=== PATIENT | male | born 1940 | race Caucasian/White ===

== ENCOUNTER → 2017-12-07 | Day surgery (SDC) | payer MEDICARE, BC ==
[2017-12-04 15:58] VITALS: BMI 28.7
[~2017-12-07] MED LIST: BUPIVACAINE (PF) 0.5% 30 ML VIAL SQ ONE; GLYCOPYRROLATE 0.2 MG/ML 2 ML VIAL ONE; HEPARIN SODIUM,PORCINE 5,000 UNIT/ML 1 ML VIAL SQ ONE; HYDROcodone/APAP 5-325MG 1 EACH TAB PO ONE; HYDROcodone/APAP 5-325MG 1 EACH TAB PO PRN; IV FLUID CONTINUATION 1,000 ML IV ONE; LACTATED RINGERS 1,000 ML IV ONE; LIDOCAINE 1% INJ 10MG/ML (20 ML MDV) ONE; MIDAZOLAM 2 MG/2 ML VIAL IV PRN; MIDAZOLAM 2 MG/2 ML VIAL ONE; MORPHINE SULFATE 4 MG/ML SYRINGE IV PRN; NALOXONE 0.4 MG/ML 1 ML VIAL IV PRN; NEOSTIGMINE 1 MG/ML 10 ML VIAL ONE; ONDANSETRON 4 MG/2 ML VIAL IVP ONE; PROPOFOL 10 MG/ML 20 ML VIAL IV ONE; ROCURONIUM BROMIDE 10 MG/ML 10 ML VIAL IV ONE; SCOPOLAMINE 1.5MG/72HR PATCH TRANSDERM ONE; SUCCINYLCHOLINE CHLORIDE 100 MG/5 ML SYR IV ONE; ceFAZolin IN SWFI 2 GM/20 ML SYRINGE IVP ONE; ePHEDrine SULFATE/0.9% NACL/PF 50 MG/5 ML SYRINGE IV ONE; fentaNYL (PF) 50 MCG/ML 2 ML AMP ONE
[2017-12-07] MEDS: LACTATED RINGERS 1,000 ML IV SCH ×2 (07:19→07:46)
[2017-12-07] MEDS: DEXAMETHASONE SOD PHOSPHATE 10 MG/ML 1 ML VIAL IV ONE ×2 (07:24→07:26)
[2017-12-07 09:06] VITALS: TEMP 97.8
--- NOTE | 2017-12-07 09:11 | P.OP ---
Date of Procedure: 12/07/17 Procedure(s) Performed: PREOPERATIVE DIAGNOSIS: Incarcerated umbilical hernia POSTOPERATIVE DIAGNOSIS: Same PROCEDURE: Umbilical herniorrhaphy with mesh SURGEON: Shelli EBL: Minimal ANESTHESIA: General COMPLICATIONS: None OPERATIVE PROCEDURE: The patient was placed in the operating table in the supine position. A left periumbilical incision was made using the scalpel. The subcutaneous tissues were dissected bluntly. The hernia sac was identified. The umbilical attachments to the fascia were divided using electrocautery. The hernia sac was excised. The hernia sac was sent to pathology. The omentum was able to be reduced back into the peritoneal cavity at that time. The preperitoneal space was carefully dissected circumferentially using both electrocautery and blunt dissection. No bleeding was encountered. A 6.4 cm ventral ex mesh was placed beneath the fascia and circumferentially sutured to the fascia using 0 Ethibond transfer fashion sutures. The defect was then closed using 0 Ethibond sutures in a vest over pants fashion. The folding edge was also sutured down using 0 Ethibond sutures. The subcutaneous tissues were reapproximated using inverted 3-0 Vicryl sutures. The umbilicus was tacked back down to the fascia using a 3-0 Vicryl suture. The skin was closed using 4-0 Monocryl sutures. Steri-Strips and sterile dressings were then applied. DISPOSITION: Stable to recovery room
[2017-12-07 09:54] VITALS: RESP 18
[2017-12-07 11:09] VITALS: BP 147/71; PULSE 55
== END | disposition home or self-care (01) ==
LOC: OR 06:40
PROVIDERS: ATTEND Surgery
DX: K42.0 Umbilical hernia with obstruction, without gangrene (principal); I10 Essential (primary) hypertension; E78.5 Hyperlipidemia, unspecified; Z79.82 Long term (current) use of aspirin; Z79.1 Long term (current) use of non-steroidal anti-inflammatories (NSAID); Z79.899 Other long term (current) drug therapy
CPT/HCPCS: 88302; 49587; C1781; J2250; J1644; J1100; J2710; J2405; J2001; J3010; J0330; J2704; J0690

== ENCOUNTER → 2018-09-14 | Outpatient (CLI) | payer BC, MEDICARE, OTHER ==
--- NOTE | 2018-09-19 19:17 | MR ---
MR abdomen with and without contrast HISTORY: Abnormal bone scan, SPECT-CT Multiplanar multisequence and postcontrast images obtained through the abdomen following [address] IV. Correlation to outside exam dated 08/12/2018 In the mid body of the pancreas there is a multilocular cystic focus, T2 hyperintense, T1 hypointense which shows multiple internal septations and measures overall approximately 2.8 x 3.1 x 2.1 cm. Sugg estion of communication with the pancreatic duct. Associated calcification noted on CT. The pancreati c duct is somewhat ectatic and tortuous distal to this focus, additional cystic focus at the tail fletcher sures approximately 8 mm. Dependent gallstones are present, luminal filling defects with signal withi n the gallbladder. The mass in the right adrenal gland shows signal drop on out of phase imaging compatible with adenoma measuring approximately 3.7 cm in greatest dimension. There is no hydronephrosis within the kidneys, small T2 hyperintense focus at the upper pole the left kidney measures only approximately 1 cm. Left adrenal gland is normal. Small hiatal hernia is present. Spleen is normal. No retroperitoneal adenop athy or ascites. No evident pleural effusions. The heart is enlarged. No evident aortic aneurysm. There is some enhancement of the septa following contrast administration. 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 Cholelithiasis. Adrenal adenoma on the right. Cardiomegaly.
== END | disposition home or self-care (01) ==
LOC: RADMRIMAIN 10:29
PROVIDERS: ATTEND Physician Assistant
DX: D49.0 Neoplasm of unspecified behavior of digestive system (principal); K80.20 Calculus of gallbladder without cholecystitis without obstruction; D35.00 Benign neoplasm of unspecified adrenal gland; Z01.812 Encounter for preprocedural laboratory examination
CPT/HCPCS: 82565; 74183; 36415; A9585

== ENCOUNTER → 2019-04-14 | Outpatient (CLI) | payer OTHER ==
--- NOTE | 2019-04-14 14:16 | MR ---
MR abdomen with and without contrast HISTORY: Prior abnormal MR abdomen, pancreatic cyst Multiplanar multisequence and postcontrast images obtained through the abdomen following [address] IV Correlation to prior MR abdomen 09/14/2018 There is motion on the exam. The multilocular cystic focus involving the pancreatic body is again noted and shows similar signal c haracteristics. There are multiple internal septations. Questionable communication with the pancreati c duct. Largest cystic focus measures approximately 2.8 cm in greatest AP dimension which has increas ed in size. Next largest cystic focus measures 15 mm, these lesions are low T1 signal, high T2 signal as on prior. Septations are seen to enhance following contrast administration. Overall lesion measur es approximately 4 cm in AP dimension by 2.3 cm in transverse dimension by 2.5 cm in cephalad to caud al dimension. Liver shows signal drop on out of phase imaging as does the right adrenal mass which measures approxi mately 3.8 cm. There is no retroperitoneal adenopathy. Aorta shows normal caliber. There is a small h iatal hernia. Gallstones are noted. Lung bases are clear. Possible small cystic focus upper pole left kidney, low signal on T1-weighted images measures 12 mm, not seen for certain on T2-weighted images. Possible hemangioma is noted within the visualized spine. IMPRESSION: The cystic neoplasm involving the pancreatic body has grown in the interval, consider ser ous cystadenoma of the pancreas, mucinous cystic neoplasm of the pancreas. Probable hepatic steatosis and right adrenal adenoma. Hiatal hernia. Cholelithiasis.
== END | disposition home or self-care (01) ==
LOC: RADMRIMAIN 08:12
DX: K44.9 Diaphragmatic hernia without obstruction or gangrene (principal); K80.20 Calculus of gallbladder without cholecystitis without obstruction; D49.0 Neoplasm of unspecified behavior of digestive system
CPT/HCPCS: 74183

== ENCOUNTER → 2020-03-24 | Outpatient (CLI) | payer OTHER ==
[2020-03-24 16:26] LABS: African American GFR (CKD) 104.8 (60.0-200.0); Albumin 4.4 g/dL (3.80-4.90); Albumin/Globulin Ratio 2.1 (1.60-3.17); Anion Gap 8.5 mmol/L (4.00-12.00); BUN/Creat Ratio 22.86 Ratio (12.00-20.00); Calcium 9.4 mg/dL (8.7-10.3); Carbon Dioxide 25.5 mmol/L (21.6-31.8); Chol/HDL Ratio 3.29; Globulin 2.1 g/dL (1.6-3.3); Non-African American GFR(CKD) 90.4 (60.0-200.0); Potassium 4.2 mmol/L (3.5-5.5); Total Bilirubin 0.7 mg/dL (0.2-1.2); Total Protein 6.5 g/dL (6.2-8.2)
[2020-03-24 17:21] LABS: Hemoglobin A1C 10.5 % (4.0-6.0)
[2020-03-24 18:12] LABS: Urine Creatinine 105.4 mg/dL
== END | disposition home or self-care (01) ==
LOC: LABWHC1 07:36
PROVIDERS: ATTEND Internal Medicine Endocrinology, Diabetes & Metabolism
DX: E11.65 Type 2 diabetes mellitus with hyperglycemia (principal)
CPT/HCPCS: 36415; 80053; 80061; 82043; 82570; 83036; 84443

== ENCOUNTER → 2020-11-03 | Outpatient (CLI) | payer OTHER ==
--- NOTE | 2020-11-03 11:52 | MR ---
EXAMINATION TYPE: MR MRCP DATE OF EXAM: 11/03/2020 COMPARISON: 04/14/2019 and 09/14/2018 HISTORY: 80-year-old male K86.2, Cyst of pancreas, F/u TECHNIQUE: Multiplanar, multisequence images of the abdomen are obtained. Highly T2 weighted sequence s of the hepatobiliary system for MRCP. Rotational 3-D reconstructions generated on a dedicated [employer] workstation. FINDINGS: The heart is mildly enlarged without pericardial effusion. Liver borderline in size at 17.5 cm. No T2-weighted liver lesion is identified. No biliary ductal dilatation. Small dependently layering gallstones are demonstrated. No gallbladder wall thickening or hydropic ch shmuel. Incidental fatty lesion within the right paraspinal musculature of the upper abdomen measuring 6.5 cm long by 3.4 cm wide by 1.9 cm thick. No internal complexity is identified. Adrenal glands and left kidney appear within normal limits. Spleen is absent. Tiny 6 mm T2 hyperintensity within the mid right kidney likely a tiny cyst. There is interval partial pancreatic resection at the level of the pancreatic neck. Tiny 6 mm and 3 mm cystic structures within the remnant pancreatic head, refer to axial T2 series 401 image 19 and 23 . The larger of these appears to have been very small 4 mm, previously in retrospect. The smaller one is not clearly seen previously. No other focal lesion is identified. No evident communication with t he main pancreatic duct. There seems to be some mid upper abdominal olinda mesentery particularly on the T2 fat-saturated seque nce. This could reflect some chronic inflammation or postsurgical change. No upper abdominal lymphadenopathy, ascites fluid, or gross bowel abnormality seen. Moderate stool bu rden. IMPRESSION: 1. Interval partial pancreatectomy with resection of the previous multilocular cystic mass of the alcaraz creatic body. A couple tiny cysts are present in the pancreatic head measuring 6 mm and 3 mm. The 6 m m cyst was very small at 4 mm in retrospect on 04/14/2019. The 3 mm cyst is not clearly seen previously . No other lesion is identified. Consider annual surveillance. 2. There seems to be some olinda mesentery in the mid upper abdomen. This could reflect postsurgical c hange or mesenteric panniculitis. Clinically correlate. 3. Incidental fatty lesion within the right paraspinal musculature measuring 6.5 x 3.4 x 1.9 cm, unch anged from 04/14/2019. No internal complexity seen. 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 This can be fo llowed clinically and if any growth or pain develops here, dedicated imaging would be recommended. 4. Mild cardiomegaly. Cholelithiasis. Moderate stool burden.
== END | disposition home or self-care (01) ==
LOC: RADMRIMAIN 08:03
PROVIDERS: ATTEND Physician Assistant
DX: K86.2 Cyst of pancreas (principal); K80.20 Calculus of gallbladder without cholecystitis without obstruction; Z90.411 Acquired partial absence of pancreas
CPT/HCPCS: 74181

== ENCOUNTER → 2020-12-27 | Outpatient (CLI) | payer OTHER ==
[2020-12-27 16:10] LABS: African American GFR (CKD) 111.6 (60.0-200.0); Albumin 4.7 g/dL (3.80-4.90); Albumin/Globulin Ratio 2.04 (1.60-3.17); Anion Gap 6.8 mmol/L (4.00-12.00); Calcium 9.8 mg/dL (8.7-10.3); Carbon Dioxide 29.2 mmol/L (21.6-31.8); Chol/HDL Ratio 3.05; Globulin 2.3 g/dL (1.6-3.3); LDL Cholesterol,Calculated 57.2 mg/dL (0.0-131.0); Non-African American GFR(CKD) 96.3 (60.0-200.0); Potassium 4.7 mmol/L (3.5-5.5); Total Bilirubin 0.7 mg/dL (0.3-1.2); VLDL Calculation 30.8 mg/dL (5.00-40.00)
[2020-12-27 17:30] LABS: Urine Creatinine 71.9 mg/dL
== END | disposition home or self-care (01) ==
LOC: LABWHC1 10:16
PROVIDERS: ATTEND Internal Medicine Endocrinology, Diabetes & Metabolism
DX: E11.65 Type 2 diabetes mellitus with hyperglycemia (principal)
CPT/HCPCS: 36415; 80053; 80061; 82043; 82570; 83036; 84443

== ENCOUNTER → 2022-10-02 | Outpatient (CLI) | payer OTHER ==
--- NOTE | 2022-10-03 07:18 | MR ---
EXAMINATION TYPE: MR pancreas wo/w con DATE OF EXAM: 10/02/2022 COMPARISON: Prior MRCP November 03, 2020. Prior MRI abdomen April 14, 2019 and older study 2017. HISTORY: Cyst of pancreas CONTRAST: Standard multiplanar, multisequence MRI departmental protocol images were obtained without contrast a nd with 9 mL intravenous Gadavist gadolinium contrast. Imaging performed of the abdomen focusing on the pancreas. FINDINGS: Exam suboptimal as there is motion artifact aggravation particularly on the T2 coronal weig hted images. Pancreas: Resection of the body and tail of pancreas redemonstrated with some remnant tissue in the p ancreatic head again seen. There is slightly larger 8 mm thin-walled cyst or cystic lesion in the alcaraz creatic head axial image 27 increased in size from 6 mm on prior study. Prior visualized 3 mm thin-wa lled cyst anteriorly along the right aspect not clearly seen on current study. No new solid or cystic masses are evident. No abnormal enhancement. Visualized portion of pancreatic duct is not dilated. Other: Lung bases remain clear. Mild Cardiomegaly redemonstrated. There are numerous dependent gallst ones within the gallbladder redemonstrated. No surrounding fluid or fat stranding noted. Liver is nor mal in size without concerning solid or cystic mass. Left adrenal gland unremarkable. Persistent oval circumscribed 4.0 x 3.0 cm right adrenal mass with diffuse signal dropout consistent with benign lip id rich adenoma. No hydronephrosis or concerning solid or cystic renal masses are identified. No susp icious bowel dilatation. No intra-abdominal ascites. Horizontal scar overlies the anterior abdominal wall coronal image 2 for reference. Spleen redemonstrated surgically absent. Stable fat density 3.2 x 1.0 cm lesion in the right posterior paraspinal muscles on axial image 49 felt to reflect intramuscu lar lipoma. IMPRESSION: Slight enlargement of the 8 mm thin-walled cyst or cystic lesion in the head of the pancr eas from 6 mm on prior study. No enhancing solid component. No new solid or cystic masses clearly see n. Advise continued annual surveillance.
== END | disposition home or self-care (01) ==
LOC: RADMRIMAIN 08:36
PROVIDERS: ATTEND Internal Medicine Gastroenterology
DX: K86.2 Cyst of pancreas (principal); K86.89 Other specified diseases of pancreas
CPT/HCPCS: 74183; A9585

== ENCOUNTER → 2023-06-06 | Outpatient (CLI) | payer OTHER ==
--- NOTE | 2023-06-09 10:22 | MR ---
EXAMINATION TYPE: MR abdomen wo/w con with MRCP DATE OF EXAM: 06/06/2023 5:53 PM INDICATION: Patient age:Male; 83 years old; Reason for study: K86.2; PHH. Cyst of pancreas, Hx pancreatitis, removed half of his pancreas, remove d spleen, Sharp pains various spots throughout abdomen COMPARISON: CT scan abdomen from 04/14/2019, 11/03/2020, 10/02/2022. 09/14/2018. TECHNIQUE: Multiplanar multi-sequence imaging was performed without contrast. Post contrast imaging was performed. Post IV contrast subtraction images were also submitted for review. MRCP sequences we re also performed with IV Contrast: 8ml cc Gadavist FINDINGS: LOWER CHEST: No gross irregularity. ABDOMEN MRCP: * The intrahepatic ducts are mildly prominent centrally. * The common bile duct at the level of the pancreatic head measures 6 mm in size. * The common hepatic duct measures 3 mm in size. * The pancreatic duct is normal. Liver: No evidence for cirrhosis. Signal dropout on chemical shift of phase imaging. Gallbladder and Bile ducts: No evidence for ductal dilation, or biliary stricture or evidence of chol edocholithiasis. The gallbladder demonstrate multiple layering gallstones. Pancreas: No ductal dilation. No evidence for solid mass. Pancreatic head cyst is noted measuring up to 8 x 6 mm which is increase in size from 2019 and is similar to 10/02/2022. Postsurgical changes to the pancreas. No abnormal postcontrast enhancement. Spleen: Surgically absent Adrenal glands: There is a lesion near/arising from the right adrenal gland measuring 4.0 x 2.9 cm wh ich is seen dating back to 2018. There is signal dropout suggesting adrenal adenoma. Left adrenal gla nds unremarkable. Kidneys: No evidence for obstructive uropathy. No suspicious renal masses. Stomach and Bowel: No evidence for bowel wall thickening or evidence for obstruction. Peritoneum: No evidence of pneumoperitoneum or free fluid. Vasculature: No aortic aneurysm. Musculoskeletal: The osseous structures appear intact. Lymph Nodes: No gross evidence for lymphadenopathy. Abdominal wall: There is intramuscular lipoma in the posterior right back muscles measuring up to 3.5 x 1.7 x 6.0 cm. IMPRESSION: 1. Stable pancreatic head cystic lesion compared to 10/02/2022 and increase in size from 04/14/2019. F inding could relate to relate to sequela prior pancreatitis versus side branch intraductal papillary mucinous neoplasm. Continued surveillance recommended. 2. Stable suspected right adrenal adenoma. 3. Cholelithiasis. 4. No evidence for choledocholithiasis, biliary stricture or biliary dilation. 5. No evidence for acute abdominal process.
== END | disposition home or self-care (01) ==
LOC: RADMRIMAIN 16:37
PROVIDERS: ATTEND Internal Medicine Gastroenterology
DX: K86.2 Cyst of pancreas (principal); K80.20 Calculus of gallbladder without cholecystitis without obstruction; Z87.19 Personal history of other diseases of the digestive system
CPT/HCPCS: 74183; A9585

== ENCOUNTER 2023-06-26 11:22 | Emergency (ER) | payer OTHER ==
--- NOTE | 2023-06-26 11:52 | ED ---
General Adult HPI - General Source: patient, RN notes reviewed Mode of arrival: ambulatory Limitations: no limitations <Edward Diaz - Last Filed: 06/26/23 11:51> - General Source: patient, RN notes reviewed, old records reviewed <Manpreet Webster - Last Filed: 06/26/23 15:36> - General Stated complaint: High Blood pressure Time Seen by Provider: 06/26/23 11:51 - History of Present Illness Initial comments: 83-year-old male presents emergency Department with chief complaint of hypertension. Patient states that he's been monitoring his blood pressure and notified his PCP who recommended to come emergency 5 for evaluation and treatment. Patient denies any complaints chest pain or shortness of breath. Patient states that he is on blood pressure medication has been taken as directed. Patient offers no complaints. (Edward Diaz) This is an 83-year-old male presents emergency department stating that for the last week his blood pressures been elevated. Patient states today it was over 200 to get any talk to his primary medical care doctor and they told to come the emergency department. Patient denies any headache patient denies any blurred vision. Patient denies any numbness weakness. Patient denies chest pain difficulty breathing shortness of breath. Patient denies any recent fever chills or cough. Patient states she's taken his blood pressure medications as prescribed. (Manpreet Webster) - Related Data Home Medications Medication Instructions Recorded Confirmed Aspirin 81 mg PO DAILY 12/04/17 09/25/19 Multivitamin [Men's Multi-Vitamin] 1 each PO DAILY 12/04/17 09/25/19 Naproxen 500 mg PO BID 12/04/17 09/25/19 Propranolol [Inderal] 40 mg PO BID 12/04/17 09/25/19 Simvastatin [Zocor] 5 mg PO HS 12/04/17 09/25/19 amLODIPine BESYLATE [Norvasc] 10 mg PO HS 12/04/17 09/25/19 lisinopriL [Prinivil] 20 mg PO DAILY 12/04/17 09/25/19 metFORMIN HCL [Glucophage] 500 mg PO BID 09/25/19 09/25/19 Previous Rx's Medication Instructions Recorded Hydrocodone/Acetaminophen [[place] 1 - 2 each PO Q4HR PRN #20 tab 12/07/17 5-325] Allergies Allergy/AdvReac Type Severity Reaction Status Date / Time No Known Allergies Allergy Verified 06/26/23 11:58 Review of Systems ROS Other: All systems not noted in ROS Statement are negative. <EmilyEdward Richard - Last Filed: 06/26/23 11:51> ROS Other: All systems not noted in ROS Statement are negative. <Manpreet Webster - Last Filed: 06/26/23 15:36> ROS Statement: Those systems with pertinent positive or pertinent negative responses have been documented in the HPI. Past Medical History Past Medical History: Diabetes Mellitus, Hyperlipidemia, Hypertension Additional Past Medical History / Comment(s): Leg cramps., History of Any Multi-Drug Resistant Organisms: None Reported Past Surgical History: Appendectomy Additional Past Surgical History / Comment(s): L elbow surgery, cyst removed from pancreas Additional Past Anesthesia/Blood Transfusion Reaction / Comment(s): Takes more to sedate him. Past Psychological History: No Psychological Hx Reported Past Alcohol Use History: Occasional Past Drug Use History: None Reported - Past Family History Mother Family Medical History: No Reported History <Edward Diaz - Last Filed: 06/26/23 11:51> General Exam <EmilyEdward Richard - Last Filed: 06/26/23 11:51> <Manpreet Webster - Last Filed: 06/26/23 15:36> - General Exam Comments Initial Comments: Visual Physical Exam Vital signs reviewed General: Well-appearing, nontoxic, no acute distress. Head: Normocephalic, atraumatic Eyes: PERRLA, EOMI ENT: Airway patent Chest: Nonlabored breathing Skin: No visual rash, normal skin tone Neuro: Alert and oriented 3 Musculoskeletal: No gross abnormalities (Edward Diaz) GENERAL: Patient is well-developed and well-nourished. Patient is nontoxic and well- hydrated and is in no acute distress. ENT: Neck is soft and supple. No significant lymphadenopathy is noted. Oropharynx is clear. Moist mucous membranes. Neck has full range of motion without eliciting any pain. EYES: The sclera were anicteric and conjunctiva were pink and moist. Extraocular movements were intact and pupils were equal round and reactive to light. Eyelids were unremarkable. PULMONARY: Unlabored respirations. Good breath sounds bilaterally. No audible rales r honchi or wheezing was noted. CARDIOVASCULAR: There is a regular rate and rhythm without any murmurs gallops or rubs. SKIN: Skin is clear with no lesions or rashes and otherwise unremarkable. NEUROLOGIC: Patient is alert and oriented x3. Cranial nerves II through XII are grossly intact. Motor and sensory are also intact. Normal speech, volume and content. Symmetrical smile. MUSCULOSKELETAL: Normal extremities with adequate strength and full range of motion. LYMPHATICS: No significant lymphadenopathy is noted PSYCHIATRIC: Normal psychiatric evaluation. (Manpreet Webster) Course Vital Signs 06/26/23 06/26/23 11:55 13:37 Temperature 98.3 F Pulse Rate 53 L 55 L Respiratory 16 18 Rate Blood Pressure 181/72 216/75 O2 Sat by Pulse 97 96 Oximetry Medical Decision Making <Edward Diaz - Last Filed: 06/26/23 11:51> - Lab Data Result diagrams: 06/26/23 12:43 06/26/23 12:43 <Manpreet Webster - Last Filed: 06/26/23 15:36> - Medical Decision Making I performed a quick note portion of discharged signed Edward Diaz PA-C (Edward Diaz) EKG was interpreted by myself. EKG shows sinus bradycardia 52 bpm MS interval 173 QRSs 110 QT interval 414 QTC is 394 per patient's EKG shows T-wave inversions in leads II, III, and F aVF as well as Q waves in II, III, and F aVF. Was pt. sent in by a medical professional or institution ([facility], [employer], urgent care, hospital, or retirement...) When possible be specific @ -Patient's primary medical care doctor sent to the emergency department Did you speak to anyone other than the patient for history (EMS, parent, family, police, friend...)? What history was obtained from this source @ -No Did you review nursing and triage notes (agree or disagree)? Why? @ -I reviewed and agree with nursing and triage notes Were old charts reviewed (outside hosp., previous admission, EMS record, old EKG, old radiological studies, urgent care reports/EKG's, retirement records)? Report findings @ -I reviewed prior lab work prior charts and this patient Differential Diagnosis (chest pain, altered mental status, abdominal pain women, abdominal pain men, vaginal bleeding, weakness, fever, dyspnea, syncope, headache, dizziness, GI bleed, back pain, seizure, CVA, palpatations, mental health, musculoskeletal)? @ -not applicable EKG interpreted by me (3pts min.). @ -As above X-rays interpreted by me (1pt min.). @ -Chest x-ray shows no acute abnormality CT interpreted by me (1pt min.). @ -None done U/S interpreted by me (1pt. min.). @ -None done What testing was considered but not performed or refused? (CT, X-rays, U/S, labs)? Why? @ -None What meds were considered but not given or refused? Why? @ -None Did you discuss the management of the patient with other professionals (professionals i.e. , PA, [employer], lab, RT, psych nurse, psychiatric social worker, sales representative health insurance, teacher, customs and immigration officer, manager case management)? Give summary @ -No Was smoking cessation discussed for >3mins.? @ -No Was critical care preformed (if so, how long)? @ -No Were there social determinants of health that impacted care today? How? (Homelessness, low income, unemployed, alcoholism, drug addiction, transportation, low edu. Level, literacy, decrease access to med. care, longterm, rehab)? @ -No Was there de-escalation of care discussed even if they declined (Discuss DNR or withdrawal of care, Hospice)? DNR status @ -No What co-morbidities impacted this encounter? (DM, HTN, Smoking, COPD, CAD, Cancer, CVA, ARF, Chemo, Hep., AIDS, mental health diagnosis, sleep apnea, morbid obesity)? @ -None Was patient admitted / discharged? Hospital course, mention meds given and route, prescriptions, significant lab abnormalities, going to OR and other pertinent info. @ -Remained asymptomatic throughout the ED course. Patient was given 20 mg of hydralazine for his current high blood pressure. I will initially have patient increase his lisinopril to 40 mg daily and continue taking blood pressures before breakfast lunch and dinner and before bed and he could show his physician in a week how his blood pressures are progressing. Patient is to return to the emergency department because having any headache blurred vision chest pain difficulty breathing. Undiagnosed new problem with uncertain prognosis? @ -No Drug Therapy requiring intensive monitoring for toxicity (Heparin, Nitro, Insulin, Cardizem)? @ -No Were any procedures done? @ -No Diagnosis/symptom? @ -Hypertensive urgency Acute, or Chronic, or Acute on Chronic? @ -Acute Uncomplicated (without systemic symptoms) or Complicated (systemic symptoms)? @ -Complicated Side effects of treatment? @ -No Exacerbation, Progression, or Severe Exacerbation? @ -No Poses a threat to life or bodily function? How? (Chest pain, USA, CT, pneumonia, PE, COPD, DKA, ARF, appy, cholecystitis, CVA, Diverticulitis, Homicidal, Suicidal, threat to staff... and all critical care pts) @ -No (Manpreet Webster) - Lab Data Lab Results 06/26/23 06/26/23 06/26/23 Range/Units 12:43 12:43 12:47 WBC 12.0 H (3.8-10.6) k/uL RBC 4.26 L (4.30-5.90) m/uL Hgb 14.9 (13.0-17.5) gm/dL Hct 44.6 (39.0-53.0) % MCV 104.7 H (80.0-100.0) fL MCH 35.0 (25.0-35.0) pg MCHC 33.4 (31.0-37.0) g/dL RDW 13.2 (11.5-15.5) % Plt Count 352 (150-450) k/uL MPV 9.4 Neutrophils % 64 % Lymphocytes % 22 % Monocytes % 9 % Eosinophils % 3 % Basophils % 0 % Neutrophils # 7.7 (1.3-7.7) k/uL Lymphocytes # 2.6 (1.0-4.8) k/uL Monocytes # 1.1 H (0-1.0) k/uL Eosinophils # 0.3 (0-0.7) k/uL Basophils # 0.0 (0-0.2) k/uL Macrocytosis Slight Sodium 138 (137-145) mmol/L Potassium 4.6 (3.5-5.1) mmol/L Chloride 104 (98-107) mmol/L Carbon Dioxide 25 (22-30) mmol/L Anion Gap 9 mmol/L BUN 14 (9-20) mg/dL Creatinine 0.57 L (0.66-1.25) mg/dL Est GFR (CKD-EPI)AfAm >90 (>60 ml/min/1.73 sqM) Est GFR (CKD-EPI)NonAf >90 (>60 ml/min/1.73 sqM) Glucose 84 (74-99) mg/dL Calcium 9.5 (8.4-10.2) mg/dL Magnesium 1.9 (1.6-2.3) mg/dL Total Bilirubin 0.8 (0.2-1.3) mg/dL AST 27 (17-59) U/L ALT 15 (4-49) U/L Alkaline Phosphatase 106 (38-126) U/L Troponin I <0.012 (0.000-0.034) ng/mL Total Protein 7.6 (6.3-8.2) g/dL Albumin 4.2 (3.5-5.0) g/dL Disposition <Edward Diaz - Last Filed: 06/26/23 11:51> Is patient prescribed a controlled substance at d/c from ED?: No Time of Disposition: 15:14 <Manpreet Webster - Last Filed: 06/26/23 15:36> Clinical Impression: Hypertensive urgency Disposition: HOME SELF-CARE Instructions (If sedation given, give patient instructions): Coronary Artery Disease (DC) Additional Instructions: Patient is to increase his lisinopril to 40 mg daily and continue to keep his blood pressures before breakfast lunch and dinner and before bed and follow-up with his patient transporter or primary medical care doctor within the week Patient is to return to emergency department she's having any headaches blurred vision chest pain or difficulty breathing. Referrals: [facility],Clinic [Primary Care Provider] - 1-2 days
[2023-06-26 13:32] LABS: Basophils % (A) 0 %; Eosinophils # (A) 0.3 k/uL (0-0.7); Eosinophils % (A) 3 %; HCT 44.6 % (39.0-53.0); HGB 14.9 gm/dL (13.0-17.5); Lymphocytes # (A) 2.6 k/uL (1.0-4.8); Lymphocytes % (A) 22 %; MCHC 33.4 g/dL (31.0-37.0); MCV 104.7 fL (80.0-100.0); Macrocytosis Slight; Mean Platelet Volume 9.4; Monocytes # (A) 1.1 k/uL (0-1.0); Monocytes % (A) 9 %; Neutrophils # (A) 7.7 k/uL (1.3-7.7); Neutrophils % (A) 64 %; Platelet Count 352 k/uL (150-450); RBC 4.26 m/uL (4.30-5.90); RDW 13.2 % (11.5-15.5)
[2023-06-26 13:36] LABS: ALT 15 U/L (4-49); AST 27 U/L (17-59); African American GFR (CKD) >90 (>60 ml/min/1.73 sqM); Albumin 4.2 g/dL (3.5-5.0); Alkaline Phosphatase 106 U/L (38-126); Anion Gap 9 mmol/L; Blood Urea Nitrogen 14 mg/dL (9-20); Calcium 9.5 mg/dL (8.4-10.2); Carbon Dioxide 25 mmol/L (22-30); Chloride 104 mmol/L (98-107); Glucose 84 mg/dL (74-99); Magnesium 1.9 mg/dL (1.6-2.3); Non-African American GFR(CKD) >90 (>60 ml/min/1.73 sqM); Potassium 4.6 mmol/L (3.5-5.1); Sodium 138 mmol/L (137-145); Total Bilirubin 0.8 mg/dL (0.2-1.3); Total Protein 7.6 g/dL (6.3-8.2)
[2023-06-26 13:38] VITALS: RESP 18
[2023-06-26] MEDS ORDERED: hydrALAZINE HCL 20 MG/ML 1 ML VIAL IVP STA (13:59)
--- NOTE | 2023-06-26 14:48 | XR ---
EXAMINATION TYPE: XR chest 2V DATE OF EXAM: 06/26/2023 COMPARISON: None HISTORY: 83 year-old male shortness of breath, difficulty breathing TECHNIQUE: PA and lateral views FINDINGS: Borderline to mild cardiomegaly. Lungs and pleural spaces are clear. IMPRESSION: Borderline to mild cardiomegaly. No acute cardiopulmonary process.
[2023-06-26 15:43] VITALS: BP 178/90; PULSE 50; TEMP 98.1
== END 2023-06-26 15:42 | disposition home or self-care (01) ==
LOC: EC 11:22
DX: I16.0 Hypertensive urgency (principal); I10 Essential (primary) hypertension; E11.9 Type 2 diabetes mellitus without complications; E78.5 Hyperlipidemia, unspecified; Z79.82 Long term (current) use of aspirin; Z79.84 Long term (current) use of oral hypoglycemic drugs; Z79.899 Other long term (current) drug therapy
CPT/HCPCS: 99284 ×2; 96374; 36415; 93005; 80053; 83735; 84484; 85025; 71046; J0360

== ENCOUNTER 2023-09-04 08:16 | Day surgery (SDC) | payer OTHER ==
[~2023-09-04 08:16] MED LIST changes: +ALPRAZolam 0.25 MG TAB PO PRN; +ALPRAZolam 0.5 MG TAB PO PRN; +ASPIRIN 325 MG TAB PO STA; +ATORVASTATIN 80 MG TAB PO STA; -BUPIVACAINE (PF) 0.5% 30 ML VIAL SQ ONE; -GLYCOPYRROLATE 0.2 MG/ML 2 ML VIAL ONE; +HEPARIN SODIUM,PORCINE (1 ML) 2,500 UNIT in SODIUM CHLORIDE 0.9% 250 ML IRRIGATION PRN; +HEPARIN SODIUM,PORCINE 10,000 UNIT in SODIUM CHLORIDE 0.9% 1,000 ML IRRIGATION PRN; -HEPARIN SODIUM,PORCINE 5,000 UNIT/ML 1 ML VIAL SQ ONE; -HYDROcodone/APAP 5-325MG 1 EACH TAB PO ONE; -HYDROcodone/APAP 5-325MG 1 EACH TAB PO PRN; -IV FLUID CONTINUATION 1,000 ML IV ONE; -LACTATED RINGERS 1,000 ML IV ONE; -LIDOCAINE 1% INJ 10MG/ML (20 ML MDV) ONE; -MIDAZOLAM 2 MG/2 ML VIAL IV PRN; -MIDAZOLAM 2 MG/2 ML VIAL ONE; -MORPHINE SULFATE 4 MG/ML SYRINGE IV PRN; -NALOXONE 0.4 MG/ML 1 ML VIAL IV PRN; -NEOSTIGMINE 1 MG/ML 10 ML VIAL ONE; +NITROGLYCERIN SL TABS 0.4 MG TAB SUBLINGUAL PRN; -ONDANSETRON 4 MG/2 ML VIAL IVP ONE; -PROPOFOL 10 MG/ML 20 ML VIAL IV ONE; -ROCURONIUM BROMIDE 10 MG/ML 10 ML VIAL IV ONE; -SCOPOLAMINE 1.5MG/72HR PATCH TRANSDERM ONE; +SODIUM CHLORIDE 0.9% 1,000 ML in EMPTY BAG 1 BAG IV SCH; -SUCCINYLCHOLINE CHLORIDE 100 MG/5 ML SYR IV ONE; -ceFAZolin IN SWFI 2 GM/20 ML SYRINGE IVP ONE; -ePHEDrine SULFATE/0.9% NACL/PF 50 MG/5 ML SYRINGE IV ONE; -fentaNYL (PF) 50 MCG/ML 2 ML AMP ONE
[2023-09-04] MEDS ORDERED: SODIUM CHLORIDE 0.9% 1,000 ML IV ONE (08:45)
[2023-09-04 09:00] LABS: Glucose,Whole Blood 135 mg/dL (70-110)
[2023-09-04 09:23] VITALS: RESP 16; TEMP 97.1
[2023-09-04] MEDS ORDERED: VERAPAMIL 2.5 MG/ML 2 ML AMP ONE (10:00)
[2023-09-04] MEDS ORDERED: HEPARIN SODIUM 1,000 UN/ML (10ML VL) ONE (10:19)
[2023-09-04] MEDS ORDERED: fentaNYL (PF) 50 MCG/ML 2 ML AMP ONE (10:19)
[2023-09-04] MEDS ORDERED: fentaNYL (PF) 50 MCG/ML 2 ML AMP IVP ONE (10:44)
[2023-09-04] MEDS ORDERED: MIDAZOLAM 2 MG/2 ML VIAL IVP ONE (10:44)
[2023-09-04] MEDS ORDERED: LIDOCAINE 1% INJ 10MG/ML (20 ML MDV) SQ ONE (10:46)
[2023-09-04] MEDS ORDERED: VERAPAMIL SYRINGE (5 MG/10 ML) INTRAARTER ONE (10:47)
[2023-09-04] MEDS: HEPARIN SODIUM 1,000 UN/ML (10ML VL) IV ONE ×4 (10:50→11:23)
[2023-09-04] MEDS ORDERED: CLOPIDOGREL 75 MG TAB ONE (11:07)
[2023-09-04] MEDS ORDERED: CLOPIDOGREL 75 MG TAB PO ONE (11:15)
[2023-09-04] MEDS ORDERED: IOPAMIDOL-370 100ML BTL INJ ONE ×3 (11:26→11:38)
[2023-09-04] MEDS ORDERED: ATROPINE SULFATE 0.1 MG/ML 10ML SYRINGE IV PRN (14:04)
[2023-09-04] MEDS ORDERED: RX INFO: IV CONTRAST WAS GIVEN 1 EACH MISC MISCELLANE PRN (14:04)
[2023-09-04] MEDS ORDERED: ZOLPIDEM 5 MG TAB PO PRN (14:04)
[2023-09-04 15:14] VITALS: BP 150/72; PULSE 54
[2023-09-04] MEDS ORDERED: ATORVASTATIN 80 MG TAB PO SCH (21:00)
[2023-09-04] MEDS ORDERED: PROPRANOLOL 40 MG TAB PO SCH (21:00)
[2023-09-04] MEDS ORDERED: MAGNESIUM OXIDE 400 MG TAB PO SCH (21:00)
[2023-09-04] MEDS ORDERED: amLODIPine 10 MG TAB PO SCH (21:00)
[2023-09-04] MEDS ORDERED: NON FORMULARY DRUG (Insulin Glargine 100 UNIT/ML Ml) SQ SCH (21:00)
--- NOTE | 2023-09-04 21:30 | P.PRCINT ---
Percutaneous Coronary Int. - Percutaneous Coronary Intervention Percutaneous Coronary Intervention: PROCEDURES PERFORMED: Left heart catheterization, bilateral coronary angiography, ultrasound guided arterial access, iFR of the LAD, PCI of the RCA with overlapping 3.0 x 8mm Xience LILIA x 2 proximally and additionally mid to distal RCA with 3.0 x 8mm Xience LILIA INDICATION: Abnormal stress test CONSENT:I have discussed the risks, benefits and alternative therapies for the above-mentioned procedure and for both sedation/analgesia as well as necessary blood product administration, if indicated, as they pertain to this patient. The patient has indicated understanding and acceptance of the risks and procedures discussed. PROCEDURE: After the risks, benefits and alternatives of the above mentioned procedure explained in detail with the patient, informed consent was obtained. Patient was taken to the catheterization lab and prepped and draped in usual fashion. Ultrasound guidance was used to assess for arterial access. 1% lidocaine was used to anesthetize the right radial artery. A 6-Macanese sheath was placed in the right radial artery using modified Seldinger technique and ultrasound guidance. Left coronary angiography was performed with a 5-Macanese JL 3.5 catheter and right coronary angiography was performed with a 5-Macanese AR2 catheter in various views. A 5-Macanese AR2 catheter was inserted into the left ventricle and pressure measurements were obtained. The decision was made to perform iFR of the LAD given the lesion appeared somewhat intermediate however stress test was abnormal in that apex. Heparin was given. Using the FL 3.5 catheter, a 0.014 pressure wire was advanced into the left main and normalize. He was then advanced 1 cm distal to the LAD lesion and was noted to be abnormal at 0.82. The wire was then pulled. The decision was made to perform PCI of the RCA. A 6-Macanese AL 0.75 guide was used to engage the RCA. A 0.014 BMW wire was advanced in the distal RCA. Predilation was performed of the more distal 95% stenosis with a 2.5 x 8 mm noncompliant balloon. Next a 3.0 by 8mm Xience LILIA was placed in the mid to distal RCA. There was some suitable lesion noted secondary to the wire however the more proximal lesion did appear significant and repeat angiograms and therefore a 3.0 by 8mm Xience LILIA was placed more proximally. There was some geographical miss and therefore additional 3.0 x 8mm Xience LILIA was placed at the distal edge of the stent. Final angiograms were performed. Pre- intervention there was 95% RCA stenosis with TEE 2 flow with competitive flow in the PDA. Post intervention there was less than 10% stenosis with TEE 3 flow. Given contrast threshold LAD intervention was deferred. The right radial sheath was removed and a TR band was placed with hemostasis achieved. The patient tolerated the procedure well. Patient was transported back to the post catheterization holding area in stable condition. Conscious Sedation: Patient was monitored under the direct supervision of myself for conscious sedation using Versed and fentanyl for a total duration of 53 minutes HEMODYNAMICS: Irritable: 122/67 LV: 124/80, LVEDP 16 SELECTIVE CORONARY ARTERIOGRAPHY: LEFT MAIN: The left main is a large caliber vessel which trifurcates into the LAD, a ramus (nearly high OM1) and circumflex. There is no significant stenosis. LEFT ANTERIOR DESCENDING CORONARY ARTERY: LAD is a large caliber vessel which wraps around to the apex. There is diffuse mild luminal irregularities and a more focal mid LAD 60-70% stenosis. There are left to right collaterals to the PDA RAMUS INTERMEDIUS: The ramus is nearly a high OM1 and is moderate caliber with no significant stenosis LEFT CIRCUMFLEX CORONARY ARTERY: Left circumflex is a small to moderate caliber vessel which gives of a small caliber OM2 branch and has a proximal 50-60% stenosis RIGHT CORONARY ARTERY: The right coronary artery is a moderate to large caliber vessel which gives off a PDA and PLV branch and is the dominant vessel. There is a proximal to mid 60-70% stenosis and a more focal mid to distal 95% stenosis. There is TEE 2 flow of the PDA with competitive flow of the PDA. FINAL IMPRESSION: 1. CAD as described above including 60-70% proximal to mid RCA, 95% mid to d istal RCA, 60-70% mid LAD, 50-60% circumflex stenosis 2. Mildly elevated left sided filling pressures 3. Abnormal iFR of the LAD at the focal lesion 4. S/p PCI of the RCA with overlapping 3.0 x 8mm Xience LILIA x 2 proximally and additionally mid to distal RCA with 3.0 x 8mm Xience LILIA PLAN: 1. Aggressive risk factor modification per most recent ACC/AHA guidelines. 2. Continue dual antiplatelets with aspirin and Plavix for 6 months 3. Consider staged PCI of LAD if having significant angina.
[2023-09-05] MEDS ORDERED: CLOPIDOGREL 75 MG TAB PO SCH (09:00)
[2023-09-05] MEDS ORDERED: NON FORMULARY DRUG (Multivitamin [Men's Multi-Vitamin] 1 EACH Tablet) PO SCH (09:00)
[2023-09-05] MEDS ORDERED: ASPIRIN 81 MG PO SCH (09:00)
[2023-09-05] MEDS ORDERED: lisinopriL 20 MG TAB PO SCH (09:00)
[2023-09-05] MEDS ORDERED: hydroCHLOROthiazide 25 MG TAB PO SCH (09:00)
[2023-09-05] MEDS ORDERED: SPIRONOLACTONE 25 MG TAB PO SCH (09:00)
== END 2023-09-04 16:22 | disposition home or self-care (01) ==
LOC: CATHCVL 08:16
PROVIDERS: ATTEND Internal Medicine
DX: I25.10 Atherosclerotic heart disease of native coronary artery without angina pectoris (principal); I10 Essential (primary) hypertension; E11.9 Type 2 diabetes mellitus without complications; E78.5 Hyperlipidemia, unspecified; Z79.82 Long term (current) use of aspirin; Z79.84 Long term (current) use of oral hypoglycemic drugs; Z79.899 Other long term (current) drug therapy
CPT/HCPCS: 93458; 93799; 76937; C9600; C1769 ×3; C1894; C1874 ×2; C1887; C1725; J2250; J2001; J3010; J1644; Q9967

== ENCOUNTER → 2024-04-22 | Outpatient (CLI) | payer OTHER ==
--- NOTE | 2024-04-22 09:51 | MR ---
EXAMINATION TYPE: MR pancreas wo/w con DATE OF EXAM: 04/22/2024 9:17 AM INDICATION: Patient age:Male; 84 years old; Reason for study: K86.2 cyst of pancreas; [facility]. COMPARISON: MR abdomen 06/06/2023, MR pancreas 10/02/2022, MRCP 11/03/2020, MR abdomen 04/14/2019, 018 TECHNIQUE: Multiplanar multi-sequence imaging was performed of the pancreas without and with IV cont rast. The patient was given 8 ccs of Gadavist intravenously and dynamic imaging was performed. Post IV contrast subtraction images were also submitted for review. FINDINGS: Pancreas: Resection of the body and tail of pancreas redemonstrated with some remnant tissue in the p ancreatic head again seen. Stable 8 mm thin-walled cyst or cystic lesion in the pancreatic head axial image 25. No new suspicious identified. No new solid or cystic masses are evident. No abnormal enhan cement. No mural nodularity. Visualized portion of pancreatic duct is not dilated. Other: Lung bases remain clear. Mild cardiomegaly redemonstrated. There are numerous dependent gallst ones within the gallbladder redemonstrated. No surrounding fluid or fat stranding noted. Liver is nor mal in size without concerning solid or cystic mass. Left adrenal gland unremarkable. Persistent oval circumscribed 3.7 cm right adrenal mass with diffuse signal dropout consistent with benign lipid vick h adenoma. No hydronephrosis or concerning solid or cystic renal masses are identified. No suspicious bowel dilatation. No intra- abdominal ascites. Horizontal scar overlies the anterior abdominal wall. Spleen is again surgically absent. Stable fat density 3.2 x 1.0 cm lesion in the right posterior par aspinal muscles most consistent with intramuscular lipoma. Redemonstration of urinary bladder dome di verticulum (series 301, image 20). Few scattered colonic diverticula. IMPRESSION: 1. Stable pancreatic head 8 mm thin-walled cyst or cystic lesion from prior study. No worrisome fea tures at high risk stigmata. No enhancing solid component. No new suspicious masses. Continued survei llance is recommended. 2. Stable right adrenal lipid rich adenoma. 3. Cholelithiasis.
== END | disposition home or self-care (01) ==
LOC: RADMRIMAIN 08:08
PROVIDERS: ATTEND Internal Medicine Gastroenterology
DX: K86.2 Cyst of pancreas (principal); D35.01 Benign neoplasm of right adrenal gland; K80.20 Calculus of gallbladder without cholecystitis without obstruction
CPT/HCPCS: 74183; A9585

== ENCOUNTER → 2024-08-12 | Outpatient (CLI) | payer MEDICARE, BC, OTHER ==
[2024-08-12 15:32] LABS: HCT 38.4 % (39.6-50.0); MCH 34.9 pg (27.0-32.0); MCHC 33.9 g/dL (32.0-37.0); MCV 103.2 FL (80.0-97.0); Mean Platelet Volume 10.9 FL (9.5-12.2); NRBC Per 100 WBC 0 X 10*3/uL (0.00-0.01); Platelet Count 391 X 10*3/uL (140-440); RBC 3.72 X 10*6/uL (4.40-5.60); RDW 13.3 % (11.5-14.5); WBC 8.64 X 10*3/uL (4.50-10.00)
[2024-08-12 16:19] LABS: Blood Urea Nitrogen 24.2 mg/dL (9.0-27.0); Carbon Dioxide 21.7 mmol/L (21.6-31.8); Chloride 101 mmol/L (96-109); Potassium 5.1 mmol/L (3.5-5.5); Sodium 138 mmol/L (135-145)
== END | disposition home or self-care (01) ==
LOC: LABPAT 11:00
PROVIDERS: ATTEND Internal Medicine
CPT/HCPCS: 80051; 82565; 84520; 85027

== ENCOUNTER 2024-08-20 08:36 | Day surgery (SDC) | payer BC, MEDICARE, OTHER ==
[~2024-08-20 08:36] MED LIST changes: -ALPRAZolam 0.5 MG TAB PO PRN; -ASPIRIN 325 MG TAB PO STA; -ATORVASTATIN 80 MG TAB PO STA; -NITROGLYCERIN SL TABS 0.4 MG TAB SUBLINGUAL PRN; -SODIUM CHLORIDE 0.9% 1,000 ML in EMPTY BAG 1 BAG IV SCH; +ZOLPIDEM 5 MG TAB PO PRN
[2024-08-20 09:19] VITALS: RESP 18; TEMP 97.9
[2024-08-20] MEDS: IV FLUID CONTINUATION 1,000 ML IV ONE (09:19)
[2024-08-20] MEDS: EMPTY BAG 1 BAG with SODIUM CHLORIDE 0.9% 1,000 ML IV SCH (09:19)
[2024-08-20 09:20] LABS: Glucose,Whole Blood 153 mg/dL (70-110)
[2024-08-20] MEDS: fentaNYL (PF) 50 MCG/ML 2 ML AMP IVP ONE (09:45)
[2024-08-20] MEDS: LIDOCAINE 1% INJ 10MG/ML (20 ML MDV) SQ ONE (09:49)
[2024-08-20] MEDS: MIDAZOLAM 2 MG/2 ML VIAL IVP ONE (09:49)
[2024-08-20] MEDS: CLOPIDOGREL 75 MG TAB PO ONE (10:12)
[2024-08-20] MEDS: IOPAMIDOL-370 200ML BTL INJ ONE (11:03)
[2024-08-20] MEDS: IOPAMIDOL-370 100ML BTL INJ ONE (11:03)
[2024-08-20] MEDS ORDERED: NALOXONE 0.4 MG/ML 1 ML VIAL IVP PRN (11:50)
--- NOTE | 2024-08-20 13:31 | P.PCN ---
Description of Procedure: PROCEDURES PERFORMED: Abdominal angiography with bilateral runoff, REMITTANCE CLERK and right common iliac stent with a 9.0 x 37mm Visi Pro stent, shockwave lithotripsy of right common iliac artery, IVUS right iliac artery INDICATION: Abnormal ultrasound, PAD, Itz class 3 claudication, lifestyle limiting despite walking program CONSENT:I have discussed the risks, benefits and alternative therapies for the above-mentioned procedure and for both sedation/analgesia as well as necessary blood product administration, if indicated, as they pertain to this patient. The patient has indicated understanding and acceptance of the risks and procedures discussed. PROCEDURE: After the risks, benefits and alternatives of the above mentioned p rocedure explained in detail with the patient, informed consent was obtained. Patient was taken to the catheterization lab and prepped and draped in usual fashion. 1% lidocaine was used to anesthetize the left femoral area. A 5- Vincentian sheath was placed in the left femoral artery using modified Seldinger technique. A 5-Vincentian pigtail catheter was inserted to the abdominal aorta and DSA imaging was obtained. Patient tolerated the diagnostic portion well. Next, the decision was made to perform intervention of the right common iliac artery. A 7Fr sheath was placed in the right common femoral artery using ultrasound guidance. IV heparin was given. A 0.014 BMW wire as well as a 0.018 glide advantage wire were used to cross the lesion. Balloon angioplasty was performed with a 4.0 x 20mm then a 6.0 x 20mm balloon. IVUS was performed which showed extensive calcification and reference vessel 9.0 - 9.5mm. The decision was made to perform Shockwave lithotripsy. Shockwave lithotripsy was performed of the right common iliac with a 9.0 balloon. Next a 9.0 x 37mm Visi Pro stent was placed at the proximal to distal common iliac artery. Final angiograms were performed. Pre intervention there was 99% stenosis with slow flow. Post intervention there was <10% stenosis and uninhibited flow. A right and left femoral angiogram were performed and anatomoy was suitable for closure. A 6Fr Angioseal was placed on the left and an 8Fr Angioseal on the right with hemostasis achieved. The patient tolerated the procedure well. Patient was transported back to the post catheterization holding area in stable condition. Conscious Sedation: Patient was monitored under the direct supervision of vision of myself for conscious sedation using Versed and fentanyl for a total duration of 73 minutes HEMODYNAMICS: Ao: 143/87 Abdominal aorta: The abdominal aorta has mild calcifcation. Renal arteries are patent. There is no significant dissection or aneurysm. There is no signi ficant stenosis. Right lower extremity: Right common iliac artery: There is a 99% mid to distal stenosis. Right external iliac artery: There is no significant stenosis. Right internal iliac artery: There is no significant stenosis. Right common femoral artery: There is no significant stenosis. Right profunda: There is no significant stenosis. Right SFA: There is no significant stenosis. Right popliteal artery: There is no significant stenosis. There is 3 vessel runoff below the knee Left lower extremity: Left common iliac artery: There is no significant stenosis. Left external iliac artery: There is no significant stenosis. Left internal iliac artery: There is no significant stenosis. Left common femoral artery: There is no significant stenosis. Left profunda: There is no significant stenosis. Left SFA: There is no significant stenosis. Left popliteal artery: There is no significant stenosis. There is 3 vessel runoff below the knee FINAL IMPRESSION: 1. Peripheral arterial disease as described above with 99% right common iliac artery stenosis 2. S/p right common iliac stent with a 9.0 x 37mm Visi Pro stent PLAN: 1. Aggressive risk factor modification per most recent ACC/AHA guidelines. 2. Dual antiplatelets with aspirin and Plavix for 3 months.
--- NOTE | 2024-08-20 14:09 | IR ---
EXAMINATION TYPE: IR stent intravas non coronary DATE OF EXAM: 08/20/2024 2:06 PM COMPARISON: Pre Operative Images if available both CT/MRI or plain film CLINICAL INDICATION: Male, 84 years old with history of right leg pain, 9.5min fluoro, 47.3Gycm2; TECHNIQUE: IR stent intravas non coronary, multiple fluoroscopic images provided for procedure. Total fluoroscopy time: 9.5 seconds Total submitted images to PACS: [id number] DAP: 47.3 mGym2 Gycm2 uGym2 cGycm2 or equivalent. FINDINGS: IMPRESSION: 1. Report was generated for administrative purposes only. 2. Please see the operative/procedural note for further details. [facility], , 08/20/2024 2:07 PM
[2024-08-20 14:17] VITALS: BP 127/56
[2024-08-20 16:09] VITALS: PULSE 54
[2024-08-20] MEDS ORDERED: MAGNESIUM OXIDE 400 MG TAB PO SCH (21:00)
[2024-08-20] MEDS ORDERED: PROPRANOLOL 40 MG TAB PO SCH (21:00)
[2024-08-20] MEDS ORDERED: ATORVASTATIN 80 MG TAB PO SCH (21:00)
[2024-08-20] MEDS ORDERED: NON FORMULARY DRUG (Insulin Glargine 100 UNIT/ML Ml) SQ SCH (21:00)
[2024-08-20] MEDS ORDERED: amLODIPine 10 MG TAB PO SCH (21:00)
[2024-08-21] MEDS ORDERED: hydroCHLOROthiazide 25 MG TAB PO SCH (09:00)
[2024-08-21] MEDS ORDERED: CLOPIDOGREL 75 MG TAB PO SCH (09:00)
[2024-08-21] MEDS ORDERED: ASPIRIN 81 MG PO SCH (09:00)
[2024-08-21] MEDS ORDERED: lisinopriL 20 MG TAB PO SCH (09:00)
[2024-08-21] MEDS ORDERED: SPIRONOLACTONE 25 MG TAB PO SCH (09:00)
[2024-08-21] MEDS ORDERED: THEOPHYLLINE 24 HOUR 400 MG CAP.ER.24H PO SCH (09:00)
== END 2024-08-20 16:25 | disposition home or self-care (01) ==
LOC: CATHCVL 08:36
PROVIDERS: ATTEND Internal Medicine
DX: I25.10 Atherosclerotic heart disease of native coronary artery without angina pectoris (principal); I73.9 Peripheral vascular disease, unspecified; I65.29 Occlusion and stenosis of unspecified carotid artery; I10 Essential (primary) hypertension; E11.9 Type 2 diabetes mellitus without complications; E78.2 Mixed hyperlipidemia; Z79.84 Long term (current) use of oral hypoglycemic drugs; Z79.82 Long term (current) use of aspirin; Z79.899 Other long term (current) drug therapy
CPT/HCPCS: 75625; 75716; 37221; 37252; 99152; 99153; C1769 ×5; C1760; C1725 ×3; C1894 ×2; C1753; C1876; C9764; J2250; J2003; J3010; J1644; Q9967 ×2